=== PATIENT | female | born 1995 | race Caucasian/White ===

== ENCOUNTER 2018-08-31 18:48 | Emergency (ER) | payer MEDICAID, OTHER ==
[~2018-08-31] VITALS: Ht 154.9 cm; Wt 75.1 kg
[~2018-08-31 18:48] MED LIST: PREN-39 PO
[2018-08-31 18:50] VITALS: BP 138/74; PULSE 86; RESP 18; Ht 154.9 cm; Wt 75.1 kg
[2018-08-31] MEDS ORDERED: ACETAMINOPHEN 325 MG TAB PO ONE (19:30)
[2018-08-31] MEDS ORDERED: DOCU-144 PO (20:31)
[2018-08-31] MEDS ORDERED: IBUP-1542 PO (20:31)
--- NOTE | 2018-08-31 20:40 | ERD ---
ER Documentation Chief Complaint Chief Complaint LLQ ABD PAIN X3DAYS, NO OTHER GI S/S HPI 23-year-old female with pain in the left lower abdomen for last 3 days. She denies any discharge, dysuria, fevers, vomiting. She denies any right-sided abdominal pain. Last menstrual period 1 week ago. Patient has a history of hard stools. Denies bleeding. ROS All systems reviewed and are negative except as per history of present illness. Medications Home Meds Active Scripts Ibuprofen* (Motrin*) 600 Mg Tab, 600 MG PO Q6, #15 TAB Prov:NENA CROCKER MD 08/31/18 Docusate Sodium* (Colace*) 100 Mg Capsule, 100 MG PO BID, #30 CAP Prov:NENA CROCKER MD 08/31/18 Reported Medications Vits W-Ca,Fe,Fa(<1MG) ( Vitamins) 1 Tab Tablet, 1 TAB PO DAILY 01/22/13 Allergies Allergies: Coded Allergies: No Known Allergy (Unverified , 01/22/13) PMhx/Soc Hx Alcohol Use: No Hx Substance Use: No Hx Tobacco Use: No Smoking Status: Never smoker FmHx Family History: No diabetes, No coronary disease, No other Physical Exam Vitals Vital Signs Date Temp Pulse Resp B/P (MAP) Pulse Ox O2 O2 Flow FiO2 Time Delivery Rate 08/31/18 99.5 86 18 138/74 97 18:50 (95) Physical Exam Const: No acute distress Head: Atraumatic Eyes: Normal Conjunctiva ENT: Normal External Ears, Nose and Mouth. Neck: Full range of motion. No meningismus. Resp: Clear to auscultation bilaterally Cardio: Regular rate and rhythm, no murmurs Abd: Soft, tenderness in the left lower abdomen without rebound. No masses. No tenderness at McBurney's point no Dominguez sign. Non distended. Normal bowel sounds Skin: No petechiae or rashes Back: No midline or flank tenderness Ext: No cyanosis, or edema Neur: Awake and alert Psych: Normal Mood and Affect Results 24 hrs Laboratory Tests Test 08/31/18 19:30 08/31/18 19:32 POC Beta HCG, Qualitative NEGATIVE Urine Color YELLOW Urine Clarity SLIGHTLY CLOUDY Urine pH 6.0 Urine Specific Mary Alice 1.023 Urine Ketones NEGATIVE mg/dL Urine Nitrite NEGATIVE mg/dL Urine Bilirubin NEGATIVE mg/dL Urine Urobilinogen NEGATIVE mg/dL Urine Leukocyte Esterase TRACE Julia/ul Urine Microscopic RBC 4 /HPF Urine Microscopic WBC 3 /HPF Urine Squamous Epithelial Cells FEW /HPF Urine Mucus FEW /HPF Urine Hemoglobin NEGATIVE mg/dL Urine Glucose NEGATIVE mg/dL Urine Total Protein NEGATIVE mg/dl Current Medications Medications Dose Sig/Grabiel Start Time Status Last (Trade) Ordered Route PRN Stop Time Admin Dose Reason Admin 650 mg ONCE ONCE 08/31/18 DC 08/31/18 Acetaminophen PO 19:30 19:22 (Tylenol 08/31/18 19:31 Tab) Procedures/MDM Urine shows no significant abnormalities. hCG negative. Pelvic ultrasound shows no acute abnormalities. X-ray Abdomen 1V Interpreted by me: Free Air: None Bowel Gas: Nonspecific Soft Tissue: Normal. Impression-normal 1 view KUB Patient presents with left lower quadrant abdominal pain. Urine sent for gono rrhea chlamydia. Current signs or symptoms do not suggest tubo-ovarian abscess, appendicitis, surgical abdomen. She has no signs of UTI. We will treat with ibuprofen, Colace, further observation at home and return precautions. The patient was stable with no new complaints during the ER course. Clinically, there is no current evidence to suggest meningitis, sepsis, acute abdomen, pneumonia, stroke, acute coronary syndrome, pulmonary embolism, aortic dissection or any other emergent condition appearing to require further evaluation or hospitalization. Patient counseled regarding my diagnostic impression and care plan. Prior to discharge all questions answered. Pt agrees with treatment plan and understands strict return precautions. Pt is instructed to follow up with primary care provider within 24-48 hours. Precautionary instructions provided including instructions to return to the ER if not improving or for any worsening or changing symptoms or concerns. Disclaimer: Inadvertent spelling and grammatical errors are likely due to EHR/dictation software use and do not reflect on the overall quality of patient care. Also, please note that the electronic time recorded on this note does not necessarily reflect the actual time of the patient encounter. Departure Diagnosis: Primary Impression: Abdominal pain Abdominal location: left lower quadrant Qualified Codes: R10.32 - Left lower quadrant pain Condition: Stable Patient Instructions: Abdominal Pain Additional Instructions: Examines normal hoy. Cheque otro vez con randolph doctor primario en el proximo [place]inton or regresa para mas o nueva simptomas. NENA CROCKER MD Aug 31, 2018 20:40
== END 2018-08-31 20:53 | disposition home or self-care (01) ==
LOC: FTE 18:48
DX: R10.32 Left lower quadrant pain (principal); R10.2 Pelvic and perineal pain
CPT/HCPCS: 74018; 76856; 81001; 81025; 87591; Z7502; Z7610